=== PATIENT | male | born 1965 | race Caucasian/White ===

== ENCOUNTER 2019-10-01 18:28 | Inpatient (IN) | payer MEDICAID ==
[~2019-10-01] VITALS: Ht 165.1 cm; Wt 108.4 kg
[2019-10-01] MEDS ORDERED: ONDANSETRON HCL 4MG/2ML INJ IV STA (18:55)
[2019-10-01] MEDS ORDERED: SODIUM CHLORIDE 0.9% 1,000 ML IV ONE (18:55)
[2019-10-01 19:24] LABS: BASOPHILS % 1.1 % (0.0-2.0); EOSINOPHILS % 0.4 % (0.0-5.0); HEMATOCRIT. 37.3 % (42.0-52.0); HEMOGLOBIN. 13.4 g/dL (14.0-18.0); LYMPHOCYTES % 23.8 % (20.0-50.0); MEAN CORPUSCULAR HEMOGLOBIN 34.6 pg (28.0-32.0); MEAN CORPUSCULAR VOLUME 96.1 fL (80.0-94.0); MEAN PLATELET VOLUME 9.6 fl (7.4-10.4); MONOCYTES % 10.5 % (2.0-8.0); NEUTROPHILS % 64.2 % (40.0-76.0); PLATELET 72 x1000/uL (130-400); RED BLOOD CELL COUNT 3.89 mill/uL (4.7-6.1); RED CELL DISTRIBUTION WIDTH 15.1 % (11.6-14.6)
[2019-10-01 19:29] LABS: CHLORIDE 88 mEq/L (98-107)
[2019-10-01 19:34] LABS: INR 1.1; PROTHROMBIN TIME 11.7 sec (9.6-11.0)
[2019-10-01 19:42] LABS: ETHANOL BLOOD 419 mg/dL
[2019-10-02 09:30] VITALS: BP 113/47
[2019-10-02] MEDS ORDERED: FOLIC ACID 1 MG, THIAMINE HCL 100 MG, MVI, ADULT NO.1 10 ML in DEXTROSE 5% WATER 1,000 ML IV ONE ×4 (09:45)
[2019-10-02] MEDS: HYDROCODONE/ACETAMINOPHEN 5/325MG TABLET PO PRN ×4 (09:49→23:17)
[2019-10-02 10:06] VITALS: BP 112/64
[2019-10-02 12:00] VITALS: BP 121/66
[2019-10-02] MEDS ORDERED: PNEUMOCOCCAL 23-VAL P-SAC VAC 0.5 ML IM ONE (12:00)
[2019-10-02] MEDS ORDERED: LORAZEPAM 2MG/ML CPJ IV PRN (17:00)
[2019-10-02] MEDS ORDERED: ACETAMINOPHEN 325MG TABLET PO PRN (17:00)
[2019-10-02] MEDS: SODIUM CHLORIDE 0.9% 1,000 ML IV SCH (17:00)
[2019-10-02] MEDS ORDERED: ONDANSETRON HCL 4MG/2ML INJ IV PRN (17:00)
[2019-10-02] MEDS ORDERED: CLONIDINE 0.1MG TABLET PO PRN (17:00)
[2019-10-02] MEDS ORDERED: IPRATROPIUM/ALBUTEROL 0.5-3(2.5)MG/3ML NEB HHN PRN (17:00)
[2019-10-02] MEDS ORDERED: DOCUSATE SODIUM 100MG CAPSULE PO PRN (17:00)
[2019-10-02 18:29] LABS: CHLORIDE 93 mEq/L (98-107)
[2019-10-02 18:34] LABS: PHOSPHORUS 1.5 mg/dL (2.5-4.9)
[2019-10-02 18:42] LABS: TOTAL IRON BINDING CAPACITY 273 ug/dL (250-450)
[2019-10-02 19:03] LABS: FOLIC ACID (FOLATE) SERUM 15.1 ng/mL (>5.38)
[2019-10-02 20:00] VITALS: BP 122/70
[2019-10-02] MEDS: CHLORDIAZEPOXIDE 25MG CAPSULE PO SCH (21:33)
[2019-10-03] VITALS: BP 137/80
[2019-10-03 04:00] VITALS: BP 130/70
[2019-10-03] MEDS: CHLORDIAZEPOXIDE 25MG CAPSULE PO SCH ×2 (06:28→13:16)
[2019-10-03] MEDS: SODIUM CHLORIDE 0.9% 1,000 ML IV SCH (06:29)
[2019-10-03 06:56] LABS: BASOPHILS % 0.8 % (0.0-2.0); EOSINOPHILS % 0.3 % (0.0-5.0); HEMATOCRIT. 35.4 % (42.0-52.0); HEMOGLOBIN. 12.7 g/dL (14.0-18.0); LYMPHOCYTES % 22.3 % (20.0-50.0); MEAN CORPUSCULAR HEMOGLOBIN 34.6 pg (28.0-32.0); MEAN CORPUSCULAR VOLUME 96.9 fL (80.0-94.0); MEAN PLATELET VOLUME 10.2 fl (7.4-10.4); MONOCYTES % 12.2 % (2.0-8.0); NEUTROPHILS % 64.4 % (40.0-76.0); PLATELET 61 x1000/uL (130-400); RED BLOOD CELL COUNT 3.66 mill/uL (4.7-6.1); RED CELL DISTRIBUTION WIDTH 15.6 % (11.6-14.6)
[2019-10-03] MEDS: HYDROCODONE/ACETAMINOPHEN 5/325MG TABLET PO PRN ×3 (06:58→17:50)
[2019-10-03 07:09] LABS: CHLORIDE 99 mEq/L (98-107)
[2019-10-03 08:00] VITALS: BP 142/54
[2019-10-03] MEDS ORDERED: POTASSIUM CHLORIDE 20MEQ TABLET SR PO NR (08:00)
[2019-10-03] MEDS: LEVOTHYROXINE SODIUM 50MCG TABLET PO SCH (08:46)
[2019-10-03] MEDS ORDERED: MAGNESIUM 2 G PREMIX 50 ML IV ONE (09:00)
[2019-10-03 09:50] LABS: SODIUM URINE RANDOM 9 mEq/L
[2019-10-03 12:00] VITALS: BP 121/78
[2019-10-03 16:00] VITALS: BP 122/62
[2019-10-03 16:25] LABS: T4 FREE 1.34 ng/dL (0.76-1.46)
[2019-10-03 16:46] LABS: HEPATITIS B SURFACE ANTIGEN NEGATIVE
[2019-10-03 17:16] LABS: HEPATITIS A AB IGM NEGATIVE (NEGATIVE)
[2019-10-03 21:00] VITALS: BP 114/71
[2019-10-04] MEDS: CHLORDIAZEPOXIDE 25MG CAPSULE PO SCH ×4 (00:25→21:21)
[2019-10-04] MEDS: HYDROCODONE/ACETAMINOPHEN 5/325MG TABLET PO PRN ×5 (05:08→22:02)
[2019-10-04 05:40] LABS: BASOPHILS % 0.8 % (0.0-2.0); EOSINOPHILS % 1.2 % (0.0-5.0); HEMATOCRIT. 34.9 % (42.0-52.0); HEMOGLOBIN. 12.4 g/dL (14.0-18.0); LYMPHOCYTES % 31.2 % (20.0-50.0); MEAN CORPUSCULAR VOLUME 98.3 fL (80.0-94.0); MEAN PLATELET VOLUME 10.3 fl (7.4-10.4); MONOCYTES % 12.5 % (2.0-8.0); NEUTROPHILS % 54.3 % (40.0-76.0); PLATELET 72 x1000/uL (130-400); RED BLOOD CELL COUNT 3.55 mill/uL (4.7-6.1); RED CELL DISTRIBUTION WIDTH 15.8 % (11.6-14.6)
[2019-10-04 05:47] LABS: CHLORIDE 103 mEq/L (98-107)
[2019-10-04] MEDS: LEVOTHYROXINE SODIUM 50MCG TABLET PO SCH (07:12)
[2019-10-04 08:00] VITALS: BP 143/86
[2019-10-04] MEDS ORDERED: MAGNESIUM 2 G PREMIX 50 ML IV SCH (08:00)
[2019-10-04] MEDS ORDERED: POTASSIUM CHLORIDE 20MEQ TABLET SR PO SCH (08:00)
[2019-10-04 12:00] VITALS: BP 122/67
[2019-10-04] MEDS ORDERED: SODIUM PHOS,M-BASIC-D-BASIC 30 MM in DEXT 5% WATER 500 ML IV NR (12:00)
[2019-10-04] MEDS: LACTULOSE 20G/30ML UDC PO SCH ×3 (12:46→21:25)
[2019-10-04 16:00] VITALS: BP 121/68
[2019-10-04 20:00] VITALS: BP 159/102
[2019-10-05] VITALS: BP 114/72
[2019-10-05 04:00] VITALS: BP 126/78
[2019-10-05] MEDS: HYDROCODONE/ACETAMINOPHEN 5/325MG TABLET PO PRN ×4 (06:21→21:08)
[2019-10-05] MEDS: LEVOTHYROXINE SODIUM 50MCG TABLET PO SCH (06:22)
[2019-10-05] MEDS: CHLORDIAZEPOXIDE 25MG CAPSULE PO SCH ×3 (06:22→21:08)
[2019-10-05] MEDS: LACTULOSE 20G/30ML UDC PO SCH ×3 (06:28→21:14)
[2019-10-05 07:27] LABS: BASOPHILS % 1.1 % (0.0-2.0); EOSINOPHILS % 2.3 % (0.0-5.0); HEMATOCRIT. 36.7 % (42.0-52.0); LYMPHOCYTES % 31.2 % (20.0-50.0); MEAN CORPUSCULAR HEMOGLOBIN 34.9 pg (28.0-32.0); MEAN CORPUSCULAR VOLUME 98.9 fL (80.0-94.0); MEAN PLATELET VOLUME 10.4 fl (7.4-10.4); NEUTROPHILS % 55.4 % (40.0-76.0); PLATELET 81 x1000/uL (130-400); RED BLOOD CELL COUNT 3.72 mill/uL (4.7-6.1); RED CELL DISTRIBUTION WIDTH 16.2 % (11.6-14.6)
[2019-10-05 07:50] LABS: CHLORIDE 103 mEq/L (98-107)
[2019-10-05 08:00] VITALS: BP 122/71
[2019-10-05 08:06] LABS: PHOSPHORUS 1.5 mg/dL (2.5-4.9)
[2019-10-05 12:00] VITALS: BP 119/71
[2019-10-05] MEDS ORDERED: SODIUM PHOS,M-BASIC-D-BASIC 15 MM in DEXT 5% WATER 245 ML IV SCH (14:00)
[2019-10-05 16:00] VITALS: BP 120/79
[2019-10-05 20:25] VITALS: BP 117/70
[2019-10-06 00:16] VITALS: BP 129/68
[2019-10-06 04:00] VITALS: BP 120/66
[2019-10-06] MEDS: HYDROCODONE/ACETAMINOPHEN 5/325MG TABLET PO PRN ×4 (05:02→20:26)
[2019-10-06] MEDS: LACTULOSE 20G/30ML UDC PO SCH ×3 (06:16→21:01)
[2019-10-06] MEDS: CHLORDIAZEPOXIDE 25MG CAPSULE PO SCH ×3 (06:32→21:01)
[2019-10-06] MEDS: LEVOTHYROXINE SODIUM 50MCG TABLET PO SCH (06:32)
[2019-10-06 07:27] LABS: HEMATOCRIT. 35.3 % (42.0-52.0); HEMOGLOBIN. 12.2 g/dL (14.0-18.0); MEAN CORPUSCULAR HEMOGLOBIN 34.8 pg (28.0-32.0); MEAN PLATELET VOLUME 10.3 fl (7.4-10.4); PLATELET 98 x1000/uL (130-400); RED CELL DISTRIBUTION WIDTH 16.5 % (11.6-14.6)
[2019-10-06 08:11] VITALS: BP 120/75
[2019-10-06] MEDS: FOLIC ACID 1MG TABLET PO SCH (08:26)
[2019-10-06] MEDS: THIAMINE HCL 100MG TABLET PO SCH (08:26)
[2019-10-06 09:04] LABS: CHLORIDE 105 mEq/L (98-107)
[2019-10-06 09:10] LABS: PHOSPHORUS 1.7 mg/dL (2.5-4.9)
[2019-10-06 12:00] VITALS: BP 124/73
[2019-10-06] MEDS ORDERED: POTASSIUM CHLORIDE 20MEQ TABLET SR PO SCH (13:00)
[2019-10-06 14:33] LABS: PLATELET ESTIMATE SLIGHTLY DECREASED
[2019-10-06] MEDS ORDERED: MAGNESIUM 1 G PREMIX 100 ML IV SCH (15:00)
[2019-10-06] MEDS ORDERED: POTASSIUM PHOS,M-BASIC-D-BASIC 15 MMOL in DEXT 5% WATER 245 ML IV SCH (15:00)
[2019-10-06 16:00] VITALS: BP 122/7
[2019-10-06 20:00] VITALS: BP 109/71
[2019-10-07 00:36] VITALS: BP 114/64
[2019-10-07 04:40] VITALS: BP 99/63
[2019-10-07] MEDS: CHLORDIAZEPOXIDE 25MG CAPSULE PO SCH ×2 (05:37→13:27)
[2019-10-07] MEDS: LACTULOSE 20G/30ML UDC PO SCH ×2 (05:37→13:27)
[2019-10-07] MEDS: LEVOTHYROXINE SODIUM 50MCG TABLET PO SCH (05:37)
[2019-10-07] MEDS: HYDROCODONE/ACETAMINOPHEN 5/325MG TABLET PO PRN ×2 (05:46→10:09)
[2019-10-07 07:28] LABS: HEMATOCRIT. 38.7 % (42.0-52.0); HEMOGLOBIN. 13.7 g/dL (14.0-18.0); MEAN CORPUSCULAR HEMOGLOBIN 35.3 pg (28.0-32.0); MEAN PLATELET VOLUME 10.2 fl (7.4-10.4); PLATELET 124 x1000/uL (130-400); RED BLOOD CELL COUNT 3.88 mill/uL (4.7-6.1); RED CELL DISTRIBUTION WIDTH 16.4 % (11.6-14.6)
[2019-10-07 07:55] LABS: CHLORIDE 107 mEq/L (98-107)
[2019-10-07 08:00] VITALS: BP 104/66
[2019-10-07 08:00] LABS: PHOSPHORUS 2.2 mg/dL (2.5-4.9)
[2019-10-07] MEDS: FOLIC ACID 1MG TABLET PO SCH (09:00)
[2019-10-07] MEDS: THIAMINE HCL 100MG TABLET PO SCH (09:00)
[2019-10-07] MEDS ORDERED: CHLO10CA71 MT (11:02)
[2019-10-07 12:00] VITALS: BP 104/54
[2019-10-07 12:43] LABS: PLATELET ESTIMATE SLIGHTLY DECREASED
[2019-10-07] MEDS ORDERED: POTASSIUM PHOS,M-BASIC-D-BASIC 20 MMOL in DEXT 5% WATER 243.3333 ML IV NR (13:00)
[2019-10-07 16:00] VITALS: BP 106/61
[2019-10-07 16:14] VITALS: BP 104/54
== END 2019-10-07 17:52 | disposition home or self-care (01) | DRG 279 ==
LOC: ER 18:28 → 6WST 10-02 00:32 → EDBEDREQTM 10-02 00:42 → EDBEDREQ 10-02 00:42 → ENRESERV 10-02 07:49
PROVIDERS: ADMIT Internal Medicine; ATTEND Internal Medicine
DX: K72.90 Hepatic failure, unspecified without coma (principal); G92 Toxic encephalopathy; N17.9 Acute kidney failure, unspecified; D69.6 Thrombocytopenia, unspecified; E87.6 Hypokalemia; E87.2 Acidosis; E87.1 Hypo-osmolality and hyponatremia; E03.9 Hypothyroidism, unspecified; D53.9 Nutritional anemia, unspecified; Y90.8 Blood alcohol level of 240 mg/100 ml or more; D72.821 Monocytosis (symptomatic); E83.42 Hypomagnesemia; I10 Essential (primary) hypertension; F10.10 Alcohol abuse, uncomplicated; K70.30 Alcoholic cirrhosis of liver without ascites; E72.20 Disorder of urea cycle metabolism, unspecified; Z79.899 Other long term (current) drug therapy; Z71.41 Alcohol abuse counseling and surveillance of alcoholic
CPT/HCPCS: 36415; 71045; 76700; 80048; 80053; 80076; 80305; 80320; 82140; 82248; 82607; 82728; 82746; 82962; 83540; 83550; 83735; 83880; 83935; 84100; 84295; 84300; 84439; 84443; 84481; 84484; 85025; 86705; 86709; 86803; 87340; 90732; 93005; 99291; J2405; J3411; J3475; J3490; J7030; J7060; J7070; G0480

== ENCOUNTER 2020-02-10 17:18 | Emergency (ER) | payer MEDICAID ==
[~2020-02-10] VITALS: Ht 172.7 cm; Wt 95.0 kg
[~2020-02-10 17:18] MED LIST: CHLO10CA71 MT
[2020-02-10 17:32] VITALS: BP 145/79
== END 2020-02-10 23:00 | disposition left against medical advice (07) ==
LOC: ER 17:18
DX: Z53.21 Procedure and treatment not carried out due to patient leaving prior to being seen by health care provider (principal)
CPT/HCPCS: 93005

== ENCOUNTER 2020-04-05 01:48 | Emergency (ER) | payer MEDICAID ==
[~2020-04-05] VITALS: Ht 177.8 cm; Wt 100.0 kg
[2020-04-05] MEDS ORDERED: PROPOFOL 10MG/ML 100ML 100 ML IV ONE (02:15)
[2020-04-05] MEDS ORDERED: SODIUM CHLORIDE 0.9% 1,000 ML IV ONE ×2 (02:15→03:30)
[2020-04-05 02:54] LABS: MEAN CORPUSCULAR HEMOGLOBIN 34.5 pg (28.0-32.0); MEAN CORPUSCULAR VOLUME 109.8 fL (80.0-94.0); MEAN PLATELET VOLUME 11.9 fl (7.4-10.4); RED BLOOD CELL COUNT 1.85 mill/uL (4.7-6.1); RED CELL DISTRIBUTION WIDTH 17.5 % (11.6-14.6)
[2020-04-05] MEDS ORDERED: NOREPINEPHRINE 8 MG in DEXTROSE 5% WATER 250 ML IV PRN (03:00)
[2020-04-05 03:01] LABS: CHLORIDE 87 mEq/L (98-107)
[2020-04-05 03:02] LABS: HEMATOCRIT. 20.3 % (42.0-52.0); HEMOGLOBIN. 6.4 g/dL (14.0-18.0)
[2020-04-05 03:03] LABS: PLATELET 32 x1000/uL (130-400)
[2020-04-05 03:04] LABS: INR 2.2; PROTHROMBIN TIME 22.4 sec (9.6-11.0)
[2020-04-05 03:06] LABS: ETHANOL BLOOD 99 mg/dL
[2020-04-05 03:08] LABS: C REACTIVE PROTEIN QUANT 9.4 mg/L (0.0-3.0)
[2020-04-05] MEDS ORDERED: OCTREOTIDE 1,000 MCG in SODIUM CHLORIDE 0.9% 100 ML IV STA (03:09)
[2020-04-05] MEDS ORDERED: PANTOPRAZOLE SODIUM 40 MG/VIAL IV STA (03:09)
[2020-04-05] MEDS ORDERED: OCTREOTIDE ACETATE 50 MCG/ML 1ML IV STA (03:09)
[2020-04-05] MEDS ORDERED: PANTOPRAZOLE 80 MG in SODIUM CHLORIDE 0.9% 100 ML IV STA (03:09)
[2020-04-05 03:15] LABS: BG BASE EXCESS -22.2 mmol/L (-2.0-2.0); BG CARBOXYHEMOGLOBIN 0.3 % (0.5-1.5); BG DEOXYHEMOGLOBIN 5.8 % (0.0-5.0); BG FRACTION INSPIRED OXYGEN 100; BG HCO3 ACT 7.7 mmol/L (22.0-26.0); BG METHEMOGLOBIN 1.4 % (0.0-1.5); BG OXYGEN SATURATION 94.1 % (92.0-98.5); BG OXYHEMOGLOBIN 92.5 % (94.0-97.0); BG PCO2 35.1 mmHg (35.0-45.0); BG PH 6.958 (7.350-7.450); BG SAMPLE SITE RIGHT RADIAL; BG TOTAL HEMOGLOBIN 5.9 g/dL (12.0-18.0); BG TOTAL RESPIRATORY RATE 23 b/min; BG VENT MODE VENT - AC
[2020-04-05] MEDS ORDERED: SODIUM CHLORIDE 0.9% 1,000 ML IV NR (03:15)
[2020-04-05] MEDS ORDERED: PHENYLEPHRINE 50 MG in DEXT 5% WATER 245 ML IV STA (03:24)
[2020-04-05] MEDS ORDERED: SODIUM BICARBONATE 8.4% 1 MEQ/ML 50ML SYR IV ONE ×2 (03:30→12:00)
[2020-04-05] MEDS ORDERED: SODIUM CHLORIDE 0.9% 1000ML BAG (SEPSIS BOLUS) IV NR (03:30)
[2020-04-05] MEDS ORDERED: PHYTONADIONE 10MG/ML AMP SUBCUT ONE (03:30)
[2020-04-05] MEDS ORDERED: VANCOMYCIN 1 G PREMIX 200 ML IV NR (03:30)
[2020-04-05] MEDS ORDERED: CEFTRIAXONE 1 G PREMIX 50 ML IV NR (03:30)
[2020-04-05] MEDS ORDERED: PANTOPRAZOLE SODIUM 40 MG/VIAL IV ONE (03:49)
[2020-04-05 04:01] LABS: NUCLEATED RED BLOOD CELLS 1 /100 WBC; PLATELET ESTIMATE DECREASED
[2020-04-05] MEDS ORDERED: PHENYLEPHRINE 50 MG in DEXT 5% WATER 245 ML IV PRN (06:15)
[2020-04-05] MEDS ORDERED: CEFEPIME 1,000 MG in DEXTROSE 5% WATER 50 ML IV SCH ×2 (08:45→10:00)
[2020-04-05] MEDS ORDERED: PROPOFOL 10MG/ML 100ML 100 ML IV SCH (08:45)
[2020-04-05] MEDS ORDERED: ONDANSETRON HCL 4MG/2ML INJ IV PRN (08:45)
[2020-04-05] MEDS ORDERED: PANTOPRAZOLE SODIUM 40 MG/VIAL IV SCH (09:00)
[2020-04-05] MEDS ORDERED: SODIUM BICARBONATE 150 MEQ in DEXTROSE 5% WATER 1,000 ML IV SCH (10:00)
[2020-04-05] MEDS ORDERED: FENTANYL CITRATE 2,500 MCG in SODIUM CHLORIDE 0.9% 200 ML IV PRN (11:00)
[2020-04-05] MEDS ORDERED: MIDAZOLAM HCL 100 MG in SODIUM CHLORIDE 0.9% 80 ML IV PRN (11:00)
[2020-04-05 11:49] LABS: HEMATOCRIT 22.9 % (42.0-52.0)
[2020-04-05] MEDS ORDERED: LORAZEPAM 2MG/ML CPJ IV ONE (12:00)
[2020-04-05] MEDS ORDERED: ATROPINE SULFATE 1MG/10ML SYR ONE (12:00)
[2020-04-05] MEDS ORDERED: MORPHINE SULFATE 2 MG/ML CPJ (NOT FOR IM USE) IV SCH (12:00)
[2020-04-05] MEDS ORDERED: EPINEPHRINE 0.1MG/ML (1:10,000) 10ML SYR ONE (12:00)
[2020-04-05] MEDS ORDERED: IPRATROPIUM/ALBUTEROL 0.5-3(2.5)MG/3ML NEB HHN SCH (12:00)
[2020-04-05] MEDS ORDERED: CALCIUM CHLORIDE 1GM/10ML SYR IV ONE (12:00)
[2020-04-05 12:01] LABS: HEMOGLOBIN 6.9 g/dL (14.0-18.0)
[2020-04-05] MEDS ORDERED: DOPAMINE 400 MG PREMIX 250 ML IV PRN (12:15)
[2020-04-05 12:30] VITALS: BP 0/0
[2020-04-05] MEDS ORDERED: OCTREOTIDE 1,000 MCG in SODIUM CHLORIDE 0.9% 98 ML IV SCH (19:00)
== END 2020-04-05 15:55 | disposition expired ==
LOC: ER 01:54 → EDBEDREQTM 03:56 → EDBEDREQ 03:56 → CANBEDREQ 15:24 → ER 15:55
DX: A41.9 Sepsis, unspecified organism (principal); R65.21 Severe sepsis with septic shock; K92.2 Gastrointestinal hemorrhage, unspecified; J96.01 Acute respiratory failure with hypoxia; D64.9 Anemia, unspecified; D69.6 Thrombocytopenia, unspecified; D68.9 Coagulation defect, unspecified; E87.8 Other disorders of electrolyte and fluid balance, not elsewhere classified; K72.00 Acute and subacute hepatic failure without coma; F10.20 Alcohol dependence, uncomplicated; G93.41 Metabolic encephalopathy; E43 Unspecified severe protein-calorie malnutrition; R74.01 Elevation of levels of liver transaminase levels; J44.9 Chronic obstructive pulmonary disease, unspecified; E78.00 Pure hypercholesterolemia, unspecified; E87.5 Hyperkalemia; E87.1 Hypo-osmolality and hyponatremia; I46.9 Cardiac arrest, cause unspecified; I10 Essential (primary) hypertension; E16.2 Hypoglycemia, unspecified; Z20.822 Contact with and (suspected) exposure to COVID-19; Y90.4 Blood alcohol level of 80-99 mg/100 ml
CPT/HCPCS: 31500; 36415; 36556; 36600; 70450; 71045; 80048; 80053; 80320; 82375; 82728; 82805; 82962; 83605; 83615; 83690; 83721; 83880; 84145; 84484; 85014; 85018; 85025; 85384; 85610; 86140; 86850; 86900; 86901; 86920; 86927; 87040; 93005; 96361; 96365; 96375; 96376; 99291; C9113; J0461; J0692; J2060; J2270; J2354; J2370; J2704; J3490; J7030; J7050; J7060; J7070; P9016; P9017; G0480